=== PATIENT | male | born 1940 | race Caucasian/White ===

== ENCOUNTER 2019-01-17 15:13 | Observation (INO) ==
[~2019-01-17 15:13] MED LIST: ZOSYN 3.375 GM in NS 50 ML IV SCH
[2019-01-17] MEDS ORDERED: DIPRIVAN 1% ONE (16:35)
[2019-01-17] MEDS ORDERED: XYLOCAINE-MPF 2% ONE (16:35)
[2019-01-17] MEDS ORDERED: QUELICIN (DOSE) ONE (16:35)
[2019-01-17] MEDS ORDERED: NORCURON ONE (16:35)
[2019-01-17] MEDS ORDERED: SODIUM CHLORIDE 0.9% 10 ML ONE (16:35)
[2019-01-17] MEDS ORDERED: FENTANYL ONE (16:35)
[2019-01-17] MEDS ORDERED: MARCAINE 0.25% PF ONE (16:37)
[2019-01-17] MEDS ORDERED: SODIUM CHLORIDE 0.9% ONE (16:37)
[2019-01-17] MEDS ORDERED: LR 1,000 ML ONE (16:38)
[2019-01-17] MEDS ORDERED: SENSORCAINE-MPF 0.5%/EPI 1:200,000 ONE ×2 (16:41→16:49)
--- NOTE | 2019-01-17 16:52 | EKG Report ---
Test Performed on : 01/17/2019 4:45:12 PM Test Reason : acute cholecystitis Blood Pressure : / mmHG Vent. Rate : 069 BPM Atrial Rate : 069 BPM P-R Int : 248 ms QRS Dur : 118 ms QT Int : 408 ms P-R-T Axes : 053 018 162 degrees QTc Int : 437 ms Sinus rhythm. with 1st degree AV block. with occasional premature ventricular complexes. Nonspecific intraventricular conduction delay ST & T wave abnormality, consider inferior ischemia ST & T wave abnormality, consider anterolateral ischemia Abnormal ECG When compared with ECG of 21-JUN-2008 10:18, premature ventricular complexes. are now present T wave inversion more evident in Anterolateral leads Confirmed by Handy GRIMALDO, Levi Kapoor ([id number]) on 01/18/2019 7:34:09 AM
--- NOTE | 2019-01-17 17:01 | Diag Imaging Result Doc PS360 ---
EXAM: CHEST-1 VIEW INDICATION: acute cholecystitis TECHNIQUE: One view COMPARISON: 03/12/2017 FINDINGS: The lungs are grossly clear. There is no discrete pleural fluid collection or pneumothorax. There are stable CABG changes. The cardiomediastinal silhouette and central vasculature are grossly unremarkable, otherwise. IMPRESSION: No evidence of acute pathology by plain radiograph. Electronically signed by Gary Giles 01/17/2019 4:58 PM
--- NOTE | 2019-01-17 17:24 | GENERAL SURGERY CONSULTATION ---
DATE: 01/17/2019 CHIEF COMPLAINT: Epigastric pain. HISTORY: I have been asked to see Mr. Macias by Dr. Marc for acute cholecystitis. Mr. Macias reports the onset yesterday after eating a hot dog, onions and chilli. He had a similar episode a month ago that resolved by 2:30 in the morning. This time it did not resolve, and he continues to have epigastric pain. Ultrasound was ordered showing a stone in the neck of the gallbladder with a dilated [place]bl[place] [id number]. PAST MEDICAL HISTORY: Pertinent for coronary artery disease. He had coronary bypass in 1985. He has had TUR of the prostate in 1996. He had a stent in his heart in 2004. He has had an umbilical hernia repair, and he has had an inguinal hernia repair. MEDICATIONS: Metoprolol daily. He occasionally takes an inhaler. He does not take any aspirin. ALLERGIES: He has no known drug allergies. FAMILY HISTORY: Pertinent for colon cancer in his father. Heart attack in his mother. SOCIAL HISTORY: He denies smoking. Drinks alcohol rarely. He is . His other medical problems include some hypertension, a little bit of COPD, and some hypercholesterolemia. REVIEW OF SYSTEMS: Negative in all 10 subsystems except as noted above. PHYSICAL EXAMINATION: Vital Signs: He is afebrile. Heart rate in the 80s. Blood pressure 125/75. Lymphatic: No cervical adenopathy. No carotid bruits. Lungs: Bilateral breath sounds. Heart: Regular rate and rhythm. Abdomen: Soft. He is tender in the epigastrium. No masses palpated. Extremities: No peripheral edema. Neurologic: He is awake and alert. ASSESSMENT: Acute calculous cholecystitis. Ultrasound shows a stone impacted in the neck of his gallbladder. PLAN: Laparoscopic cholecystectomy. I have discussed the procedure, the benefits and risks. He understands and he wants to proceed. He has been NPO. cc: MD Codey Dove MD
[2019-01-17] MEDS ORDERED: NITROGLYCERIN ONE (17:32)
[2019-01-17] MEDS ORDERED: ROBINUL ONE (17:45)
[2019-01-17] MEDS ORDERED: NEOSTIGMINE ONE (17:45)
[2019-01-17] MEDS ORDERED: ZOFRAN IV PRN ×2 (18:32→19:27)
[2019-01-17] MEDS ORDERED: DILAUDID IV PRN (18:32)
[2019-01-17] MEDS ORDERED: SODIUM CHLORIDE 0.9% INJ SCH (18:45)
[2019-01-17] MEDS ORDERED: PROTONIX IV SCH (18:45)
--- NOTE | 2019-01-17 18:49 | EKG Report ---
Test Performed on : 01/17/2019 6:24:13 PM Test Reason : EKG Blood Pressure : / mmHG Vent. Rate : 078 BPM Atrial Rate : 078 BPM P-R Int : 232 ms QRS Dur : 120 ms QT Int : 378 ms P-R-T Axes : 026 -04 160 degrees QTc Int : 430 ms Sinus rhythm. with 1st degree AV block. with occasional premature ventricular complexes. Septal infarct , age undetermined Marked ST abnormality, possible lateral subendocardial injury Abnormal ECG When compared with ECG of 17-JAN-2019 16:45, (Unconfirmed) Septal infarct is now present Confirmed by Handy GRIMALDO, Levi Kapoor ([id number]) on 01/19/2019 7:29:43 AM
[2019-01-17 18:53] LABS: INR 1.14; PROTIME 14.7 Seconds (11.0-16.0)
[2019-01-17 18:54] LABS: PTT 31.2 Seconds (22.3-41.8)
[2019-01-17] MEDS ORDERED: NS + KCL 20 MEQ 1,000 ML IV SCH (19:00)
[2019-01-17] MEDS ORDERED: NORCO-10 PO PRN (19:27)
[2019-01-17] MEDS ORDERED: MORPHINE IV PRN (19:27)
--- NOTE | 2019-01-17 20:04 | HISTORY AND PHYSICAL ---
CHIEF COMPLAINT: Abdominal pain. HISTORY OF PRESENT ILLNESS: A 78-year-old white gentleman, complaining of abdominal pain, started last night but more so early intervention specialist. The pain was located in the upper abdomen, moderate in intensity. Sharp, aching, at times spasm like in nature. The patient did have some nausea type feeling, no vomiting. The patient had similar pain in the past but resolved much earlier than this. Pain persisted. The patient was not able to sleep last night. The patient came for evaluation. I evaluated the patient. The patient had tenderness in the upper abdomen. I offered him hospitalization but patient declined. The patient did have some chills but no fever, no diarrhea, no bleeding per rectum. No hematemesis or melena. No history of abdominal distention. Denied any typical chest pain, palpitation, orthopnea or PND. No unusual cough, expectoration, or hemoptysis. The patient does have chronic mild cough, at times shortness of breath and wheezing. No dysphagia or odynophagia. Does have polyuria, polydipsia. No runny nose, stuffy nose, sinus drainage. Denied any leg swelling. No heat or cold intolerance. No major weight loss or weight gain. At times, arthritic pain in the knee. No further history available at this time. ALLERGIES: No known drug allergy. MEDICATIONS: Includes 1. Metoprolol tartrate. 2. Advair. 3. Prilosec. PAST MEDICAL HISTORY: 1. Gastroesophageal reflux disease. 2. Hypertension. 3. Coronary artery disease status post CABG. 4. COPD. 5. Gastritis and reflux disease. 6. BPH, patient had TURP done. 7. Osteoarthritis. PERSONAL HISTORY: , lives with the . Nonsmoker. Denied alcohol or substance abuse. Fairly independent in activities of daily living. REVIEW OF SYSTEMS: As per HPI. FAMILY HISTORY: Father at age 61 with colon cancer. Mother at age 67 with heart attack. PHYSICAL EXAMINATION: GENERAL: Elderly, white gentleman lying in the bed, in no acute distress. VITAL SIGNS: Blood pressure 156/90, pulse 72, respirations 18, temperature 97.6 degrees. His weight was 182. SKIN: Senile turgor. NECK: Supple. No JVD. LUNGS: Bilateral good air entry present. Head atraumatic, normocephalic. [place] conjunctivae. Anicteric sclerae. Extraocular muscle movement normal. Fundus cannot be penetrated. Good oral hygiene. No tonsillopharyngeal congestion or exudate. Ears and nose benign. NECK: Supple. No JVD, thyromegaly or lymphadenopathy. CHEST: Bilateral good air entry present. Bibasilar crepitation. No rales. CARDIOVASCULAR: S1 and S2 heard. A 2/6 systolic murmur at the apex. No gallop or thrill. ABDOMEN: Soft. No distention. Bowel sounds present. Tenderness in the epigastrium and right upper quadrant. No guarding or rigidity. EXTREMITIES: No cyanosis, clubbing. No acute DVT. Peripheral pulsation intact. 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 Able to move all 4 limbs. MUSCULOSKELETAL: Crepitation in both knee joints. Minimal swelling both legs. LABORATORY DATA: Laboratory data done today revealed leukocytosis with left shift. WBC count 16.28, platelet count 303,000. Electrolytes were fairly benign. Blood glucose 130. Amylase and lipase were normal. I did abdominal ultrasound which revealed distended gallbladder with stone impacted in the neck, early acute cholecystitis is suspected, bilateral benign renal cysts. CONSIDERATION: Acute cholecystitis with stones impacted in the neck of the gallbladder. Other medical problems includes coronary artery disease, COPD, BPH, status post surgery, gastritis. The patient does have a history of coronary artery disease. PLAN: Admit the patient. Surgical consult. I was planning to get a CT scan but Dr. Kimble is okay with current finding and investigation. The patient is going to have surgery. Overall plan discussed. cc: Codey Marc MD
--- NOTE | 2019-01-17 22:22 | OPERATIVE NOTE ---
PROCEDURE DATE: 01/17/2019 PROCEDURE PERFORMED: Laparoscopic cholecystectomy with operative cholangiogram. SURGEON: Guillermo Kimble MD. JET PILOT: Wil. PREOPERATIVE DIAGNOSIS: Acute calculous cholecystitis. POSTOP DIAGNOSIS: Acute calculous cholecystitis. FINDINGS: Cholangiogram revealed a normal size common duct, free flow in the duodenum. No intraluminal filling defects. The gallbladder was distended and discolored. DESCRIPTION OF PROCEDURE: Satisfactory general endotracheal anesthesia achieved. Abdomen is prepped and draped in a sterile fashion. We anesthetized the skin below the umbilicus, incised the skin, carried our incision down to the fascia, scored the fascia, introduced 11 trocar Optiview technique. We insufflated through this trocar. Under direct visualization used a 5 trocar midclavicular line, a 5 trocar near the anterior axillary line, 11 mm trocar in the midepigastrium. Placed the patient in reverse Trendelenburg and turned him to the left. The gallbladder was distended and somewhat discolored. We aspirated it to decompress it. We then grasped the fundus and reflected cephalad, began dissection of the omental adhesions off the infundibulum. We dissected the triangle of [place] and obtained a critical view. We clipped the cystic artery proximally x2, distally x1, and divided it. The cystic duct was clipped near the junction of the gallbladder. We incised the cystic duct, introduced a Jesse catheter, shot the cholangiogram. The findings above were noted. We removed the cholangiogram catheter, clipped the cystic duct on the opposite side of the cystic ductotomy x2 and then transected the cystic duct. We then used the cautery spatula to dissect the gallbladder away from the liver. After complete separation of gallbladder from liver, we changed videolaparoscope to the mid epigastric trocar. We introduced EndoCatch, placed the gallbladder within the bag and delivered the gallbladder out of the abdominal cavity through the umbilical trocar site. We had to enlarge it somewhat to allow delivery of the gallbladder because of the enclosed stone. We looked back. Hemostasis was satisfactory. We then used a Raman-Cristina wound closure for the epigastrium passing a 2-0 Polysorb through the fascia. We then desufflated, removed our trocars, used a 2-0 Polysorb fascial stitch at the umbilicus as well. 4-0 Polysorb was used to close the skin at each incision. Sterile OpSites were applied. He tolerated it well and was sent to the recovery room in satisfactory condition. cc: MD Codey Dove MD
[2019-01-17] MEDS: ZOSYN 3.375 GM in NS 50 ML IV SCH (23:10)
[2019-01-18] MEDS ORDERED: ZOSYN 3.375 GM in NS 50 ML IV SCH ×2
[2019-01-18] MEDS: ZOSYN 3.375 GM in NS 50 ML IV SCH (05:19)
[2019-01-18 06:04] LABS: BASO# 0.02 X1000 (0.0-0.2); BASO% 0.2 % (0.0-0.8); EOS# 0.04 X1000 (0.0-0.7); EOS% 0.4 % (0.0-10.0); HEMATOCRIT 37.5 % (42.0-52.0); HEMOGLOBIN 11.7 g/dL (14.0-18.0); LYMPH% 18.6 % (20.5-51.1); MCH 26.5 PG (27-31); MCHC 31.2 g/dL (33-37); MONO# 0.92 X1000 (0.11-0.59); NEUT# 7.34 X1000 (1.4-6.5); NEUT% 71.8 % (42.2-75.2); PLT 233 X1000 (130-400); RBC 4.41 XMIL (4.7-6.1); RDW 14.6 % (11.5-14.5); WBC 10.22 X1000 (4.8-10.8)
[2019-01-18 06:29] LABS: AGAP 7; ALB/GLOB RATIO 1.2; ALBUMIN 3.6 g/dL (3.5-5.0); ALKALINE PHOSPHATASE 79 U/L (32-122); BUN 17 mg/dL (8-22); CALCIUM 8.5 mg/dL (8.8-10.2); CHLORIDE 100 mmol/L (98-107); COSMO 273; CREATININE 0.9 mg/dL (0.7-1.2); ESTIMATED GFR > 60; GLUCOSE 114 mg/dL (70-104); GOT 30 U/L (10-34); GPT 10 U/L (10-44); SODIUM 135 mmol/L (136-145); TCO2 28 mmol/L (25-35); TOTAL BILIRUBIN 0.85 mg/dL (0.20-1.00); TOTAL PROTEIN 6.5 g/dL (6.3-8.3)
--- NOTE | 2019-01-18 07:17 | PROGRESS NOTE ---
DATE: 01/18/2019 SUBJECTIVE: Mr. Macias is feeling better. His abdominal pain is much better. He denied any fever or chills. No nausea or vomiting. No typical chest pain or palpitations. No unusual shortness of breath. The patient admitted with acute cholecystitis. The patient underwent cholecystectomy yesterday, and tolerated the procedure well. OBJECTIVE: Vital Signs: Noted. Neck: Supple. No JVD. Lungs: Bilateral good air entry present. Cardiovascular: S1 and S2 heard. Abdomen: Soft. Globular. Bowel sounds present. Minimal soreness upper abdomen. Extremities: No cyanosis or clubbing. No acute DVT. 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 Able to move all 4 limbs. CONSIDERATION: Acute calculous cholecystitis status post surgery. Hypertension. Hyperlipidemia. History suggestive of COPD. Osteoarthritis. Overall, patient is doing better. We will encourage ambulation. Advance diet to full liquid to GI soft as tolerable. When okay with surgeon, we will discharge patient home. cc: Codey Marc MD
[2019-01-18 07:40] VITALS: BP 145/73
[2019-01-18] MEDS ORDERED: LOPRESSOR PO SCH (09:00)
[2019-01-18] MEDS ORDERED: PERIDEX MT SCH (09:00)
--- NOTE | 2019-01-18 10:30 | GENERAL SURGERY PROGRESS NOTE ---
DATE: 01/18/2019 Mr. Macias is doing well. He is awake and alert. He is afebrile, stable hemodynamics. He is taking liquids just fine without any problem. [place] [id number]. His chemistry looks fine. He denies nausea. It is okay with me if he goes home. We discussed activity, diet. He will return to see me in the office in a week. cc: MD Codey Dove MD
== END 2019-01-18 10:33 | disposition home or self-care (01) ==
LOC: INTOOBSV 15:13 → DIRADM 15:13 → 4N 16:00
PROVIDERS: ADMIT Internal Medicine; ATTEND Internal Medicine